=== PATIENT | male | born 1975 | race Caucasian/White ===

== ENCOUNTER 2022-01-17 09:42 | Emergency (ER) | payer MEDICAID ==
[~2022-01-17] VITALS: Ht 180.3 cm; Wt 120.0 kg
[2022-01-17] MEDS ORDERED: levETIRAcetam 1,000mg PREMIX 100 ML IV ONE (09:45)
[2022-01-17] MEDS ORDERED: IV NORMAL SALINE 1000ML BAG 1,000 ML IV ONE ×2 (09:45→10:45)
[2022-01-17 09:56] LABS: BASO # 0.1 x10^3/uL (0.0-0.2); BASO % 1 % (0-3); EOS # 0.1 x10^3/uL (0.0-0.7); EOS % 1 % (0-3); HEMATOCRIT 43.8 % (39.0-53.0); HEMOGLOBIN 14.4 g/dL (13.0-17.5); LYMPH % 15 % (24-48); MEAN CORPUSCULAR HEMOGLOBIN 31 pg (25-35); MEAN CORPUSCULAR HGB CONC 33 g/dL (31-37); MEAN CORPUSCULAR VOLUME 93 fL (79-100); MONO # 0.8 x10^3/uL (0.0-1.1); MONO % 6 % (0-9); NEUT # 10.6 x10^3/uL (1.8-7.7); NEUT % 78 % (31-73); PLATELET COUNT 179 x10^3/uL (140-400); RED BLOOD COUNT 4.73 x10^6/uL (4.30-5.70); WHITE BLOOD COUNT 13.6 x10^3/uL (4.0-11.0)
--- NOTE | 2022-01-17 09:57 | PHYS DOC ---
General Adult HPI: HPI: Patient is a 46 year old male who presents with was giving plasma this morning when he started feeling lightheaded and let personnel know that he was going to pass out. Per staff states that he then had a seizure but they did not tell EMS how long it lasted. Patient has never had a seizure before. He did urinate on himself and was lethargic but alert and oriented when EMS arrived. Patient states he also was very nauseated and dizzy. EMS gave him nausea medication he states that he is still feeling generally weak but other than that he is feeling fine. He denies headache, dizziness at this time, adriana pain, and nausea at this time, vomiting, diarrhea, fever, recent illness, chest pain, shortness of air, vision change, focal weakness, numbness or tingling. He did not fall and was already laying down when this occurred. He did not bite his tongue. Patient has a history of hypertension and alcoholism of which he has been 5 months sober. Review of Systems: Review of Systems: Constitutional: Denies fever or chills. [] Eyes: Denies change in visual acuity. [] HENT: Denies nasal congestion or sore throat. [] Respiratory: Denies cough or shortness of breath. [] Cardiovascular: Denies chest pain or edema. [] GI: Denies abdominal pain, +nausea, denies vomiting, bloody stools or diar blayne. [] : Denies dysuria. [] Musculoskeletal: Denies back pain or joint pain. [] Integument: Denies rash. [] Neurologic: Denies headache, focal weakness or sensory changes. + Seizure. + Lightheadedness [] Endocrine: Denies polyuria or polydipsia. [] Lymphatic: Denies swollen glands. [] Psychiatric: Denies depression or anxiety. [] Heart Score: C/O Chest Pain: No HEART Score for Chest Pain: HEART Score for Chest Pain Response (Comments) Value History Slighlty/Non-Suspicious 0 ECG Nonspecific Repolarizatio 1 Age >45 - < 65 1 Risk Factors 1 or 2 Risk Factors 1 Troponin < Normal Limit 0 Total 3 Risk Factors: Risk Factors: DM, Current or recent (<one month) smoker, HTN, HLP, family history of CAD, obesity. Risk Scores: Score 0 - 3: 2.5% MACE over next 6 weeks - Discharge Home Score 4 - 6: 20.3% MACE over next 6 weeks - Admit for Clinical Observation Score 7 - 10: 72.7% MACE over next 6 weeks - Early Invasive Strategies Physical Exam: PE: Constitutional: Well developed, well nourished, no acute distress, non-toxic appearance. [] HENT: Normocephalic, atraumatic, bilateral external ears normal, oropharynx moist, no oral exudates, nose normal. [] Eyes: PERRLA, EOMI, conjunctiva normal, no discharge. [] Neck: Normal range of motion, no tenderness, supple, no stridor. [] Cardiovascular:Heart rate regular rhythm, no murmur [] Lungs & Thorax: Bilateral breath sounds clear to auscultation [] Abdomen: Bowel sounds normal, soft, no tenderness, no masses, no pulsatile masses. Urinated on self [] Skin: Warm, dry, no erythema, no rash. [] Back: No tenderness, no CVA tenderness. [] Extremities: No tenderness, no cyanosis, no clubbing, ROM intact, no edema. [] Neurologic: Alert and oriented X 3, normal motor function, normal sensory function, no focal deficits noted. [] Psychologic: Affect normal, judgement normal, mood normal. [] EKG: EK and read by Dr. Cooper is a sinus rhythm at a rate of 55 but no STEMI Radiology/Procedures: Radiology/Procedures: [] Impression: [facility] [address] [facility], [place], [place] [id number] IMAGING REPORT Signed PATIENT: JOSE APODACA ACCOUNT: [id number] : 1975 LOCATION: ER AGE: 46 SEX: M EXAM STATUS: PRE ER ORD. PHYSICIAN: LORETTA SINGH APRN REASON: 1st time seizure PROCEDURE: CT HEAD WO CONTRAST CT HEAD/BRAIN WO History: First time seizure. Comparison: None. Technique: Noncontrast CT imaging was performed of the head. Findings: No intracranial hemorrhage. No mass effect. No hydrocephalus. No evidence of acute territorial infarction. Imaged orbits are unremarkable. Right maxillary sinus mucous retention cyst. The scalp and calvarium are unremarkable. Impression: 1. No acute intracranial abnormality. ----- Exposure: One or more of the following individualized dose reduction techniques were utilized for this examination: 1. Automated exposure control 2. Adjustment of the mA and/or kV according to patient size 3. Use of iterative reconstruction technique. Electronically signed by: Mauro Frazier MD (01/17/2022 10:24 AM) [id number] DICTATED and SIGNED BY: MAURO FRAZIER MD DATE: 01/17/22 102 Course & Med Decision Making: Course & Med Decision Making Pertinent Labs and Imaging studies reviewed. (See chart for details) See HPI. Alert and oriented x4. Speaks in full clear sentences. Lungs are clear all station all lobes. He has sinus bradycardia in the 50s. He did urinate on himself when having seizure. Afebrile. Seizure precautions implemented. Patient is gotten 2 L of normal saline and a loading dose of Keppra in the ED. Patient states he is feeling better. Heart rate is 62 and blood pressure 103/64. I spoke to Dr. Andino he states that this was most likely a provoked seizure from giving plasma. He states to tell the patient he cannot drive for 6 months, there is no need for Keppra at this time, he needs to follow-up with his primary care for an MRI and and a EEG. Hemodynamically stable. [] Dragon Disclaimer: Dragon Disclaimer: This electronic medical record was generated, in whole or in part, using a voice recognition dictation system. Departure Departure Impression: Primary Impression: Seizure Disposition: 01 HOME / SELF CARE / HOMELESS Condition: STABLE Referrals: AMBROCIO PATEL MD Patient Instructions: Seizure, Adult Additional Instructions: Drink plenty of fluids to stay hydrated. I would take your blood pressure before you take any kind of blood pressure medication. I would not to give blood or plasma until you are seen by her neurologist. You need to follow-up with your primary care doctor this coming week for follow-up care and you do need a outpatient MRI and an EEG to make sure there is no other underlying cause for your seizure. Since you had a seizure you are not supposed to drive for the next 6 months as it is against the law as you could have a seizure while driving and cause injury to yourself, others or . If any symptoms return and return to the emergency room. LORETTA SINGH APRN Jan 17, 2022 09:57
[2022-01-17 10:08] LABS: CALCIUM 8.7 mg/dL (8.5-10.1); CREATININE 0.9 mg/dL (0.7-1.3); GFR 91.3; POTASSIUM 4.2 mmol/L (3.5-5.1)
[2022-01-17 10:15] LABS: ALBUMIN 3.3 g/dL (3.4-5.0); ALBUMIN/GLOBULIN RATIO 1.2 (1.0-1.7); MAGNESIUM 1.9 mg/dL (1.8-2.4); TOTAL BILIRUBIN 0.3 mg/dL (0.2-1.0); TOTAL PROTEIN 6.1 g/dL (6.4-8.2)
--- NOTE | 2022-01-17 10:26 | RAD ---
CT HEAD/BRAIN WO History: First time seizure. Comparison: None. Technique: Noncontrast CT imaging was performed of the head. Findings: No intracranial hemorrhage. No mass effect. No hydrocephalus. No evidence of acute territorial infar ction. Imaged orbits are unremarkable. Right maxillary sinus mucous retention cyst. The scalp and calvarium are unremarkable. Impression: 1. No acute intracranial abnormality. ----- Exposure: One or more of the following individualized dose reduction techniques were utilized for thi s examination: 1. Automated exposure control 2. Adjustment of the mA and/or kV according to patient size 3. Use of iterative reconstruction technique. Electronically signed by: Mauro Oneill MD (01/17/2022 10:24 AM) [id number]
[2022-01-17 11:29] LABS: BACTERIA,URINE FEW /HPF (0-FEW); HYALINE CASTS, URINE OCCASIONAL /HPF; RBC,URINE 0 /HPF (0-2)
[2022-01-17 11:33] LABS: BARBITURATES NEG (NEG); BENZODIAZEPINES NEG (NEG); CANNABINOIDS NEG (NEG); COCAINE NEG (NEG); METHADONE NEG (NEG); OPIATES NEG (NEG); PHENCYCLIDINE NEG (NEG)
[2022-01-17 11:46] LABS: AMPHETAMINE/METHAMPHETAMINE NEG (NEG)
[2022-01-17 12:17] VITALS: BP 112/77
--- NOTE | 2022-01-18 07:00 | EKG ---
[facility] [address] [place] [address] Test Date: 2022-01-17 Test Time: 09:47:32 Pat Name: JOSE APODACA Department: Room: Gender: M Etiology Teacher: : 1975 Requested By: LORETTA SINGH Order Number: [id number] Reading MD: Sumti Grady Measurements Intervals Dixon Rate: 55 P: 0 CA: 194 QRS: 0 QRSD: 90 T: -1 QT: 420 QTc: 404 Interpretive Statements SINUS RHYTHM LEFTWARD AXIS Electronically Signed On 01-18-2022 8:56:31 CDT by Sumit Grady
== END 2022-01-17 12:44 | disposition home or self-care (01) ==
LOC: ER 09:42
DX: R56.9 Unspecified convulsions (principal)
CPT/HCPCS: 36415; 70450; 80053; 80307; 81001; 82550; 83735; 84484; 85025; 93005; 96361; 96365; 99285; G0480; J7030